=== PATIENT | male | born 1980 | race Hispanic/Latino ===

== ENCOUNTER 2017-06-29 20:40 | Emergency (ER) | payer BC | END 2017-06-29 21:29 | disposition left against medical advice (07) | LOC: ERS 20:40 | DX: Z53.21 Procedure and treatment not carried out due to patient leaving prior to being seen by health care provider (principal) ==

== ENCOUNTER 2018-09-16 00:37 | Emergency (ER) | payer BC, SELFPAY ==
[2018-09-16] MEDS ORDERED: predniSONE 20 MG TAB ONE (01:55)
[2018-09-16] MEDS ORDERED: Naproxen 500 MG TAB ONE (01:55)
== END 2018-09-16 02:08 | disposition home or self-care (01) ==
LOC: ERS 00:37
DX: M54.31 Sciatica, right side (principal)
CPT/HCPCS: 99283; J7512

== ENCOUNTER 2020-03-19 15:10 | Emergency (ER) | payer BC ==
[2020-03-20 06:21] LABS: SARS-CoV-2 MS2 Negative; SARS-CoV-2 N Gene Positive; SARS-CoV-2 by NAA DETECTED (NotDetected); SARS-CoV-2 orf1ab Positive
== END 2020-03-19 20:48 | disposition left against medical advice (07) ==
LOC: ERS 15:10
DX: U07.1 COVID-19 (principal); I10 Essential (primary) hypertension
CPT/HCPCS: 87635; 99283; U0003

== ENCOUNTER 2020-03-20 10:47 | Emergency (ER) | payer BC, SELFPAY ==
--- NOTE | 2020-03-20 11:38 | RAD ---
EXAM: CHEST ONE VIEW HISTORY: Weakness. High blood pressure. COMPARISON: 02/16/2014 FINDINGS: Cardiac silhouette is magnified by projection but stable in size. Pulmonary vasculature is within nor mal limits. The lungs are clear. The osseous structures are intact. IMPRESSION: No acute cardiopulmonary process.
== END 2020-03-20 12:20 | disposition home or self-care (01) ==
LOC: ERS 10:47
DX: U07.1 COVID-19 (principal); I10 Essential (primary) hypertension
CPT/HCPCS: 71045

== ENCOUNTER 2021-01-13 13:44 | Emergency (ER) | payer OTHER ==
[2021-01-13 16:09] LABS: #Basophils 0.1 thou/uL (0.0-0.2); #Eosinphils 0.1 thou/uL (0.0-0.7); #Lymphocytes 1.3 thou/uL (1.20-3.40); #Monocytes 0.6 thou/uL (0.11-0.59); #Neutrophils 5.8 thou/uL (1.40-6.50); %Basophils 0.7 % (0.0-1.0); %Eosinophils 1.3 % (0.0-10.0); %Neutrophils 74.1 % (42.0-75.0); Hemoglobin 16.2 g/dL (14.0-18.0); Mean Corpuscular HGB CONC 33.8 g/dL (32.0-36.0); Mean Corpuscular Hemoglobin 31.9 pg (27.0-31.0); Mean Corpuscular Volume 94.2 fL (78.0-98.0); Mean Platelet Volume 9.1 fL (7.4-10.4); Platelet Count 156 thou/uL (130-400); RBC Distribution Width 12.1 % (11.5-14.5); White Blood Cell (WBC) Count 7.8 thou/uL (4.8-10.8)
[2021-01-13 16:30] LABS: ALT (SGPT) 46 U/L (8-55); AST (SGOT) 32 U/L (5-34); Albumin 4.1 g/dL (3.5-5.0); Alkaline Phosphatase 69 U/L (40-110); Anion Gap 12 mmol/L (10-20); BUN (Urea Nitrogen) 12 mg/dL (8.9-20.6); Bilirubin, Total 1.1 mg/dL (0.2-1.2); Calc. Creatinine Clearance 0 mL/min (70-130); Calcium 9.1 mg/dL (7.8-10.44); Carbon Dioxide 27 mmol/L (22-29); Chloride 103 mmol/L (98-107); Globulin 3.6 g/dL (2.4-3.5); Glucose 93 mg/dL (70-105); Potassium 4.8 mmol/L (3.5-5.1); Protein, Total 7.7 g/dL (6.0-8.3); Sodium 137 mmol/L (136-145)
[2021-01-13] MEDS ORDERED: Ketorolac Tromethamine 30 MG/ML VIAL ONE (16:59)
[2021-01-13] MEDS ORDERED: Lisinopril 10 MG TAB ONE (16:59)
== END 2021-01-13 18:15 | disposition home or self-care (01) ==
LOC: ERS 13:44
DX: R07.89 Other chest pain (principal); T50.B95A Adverse effect of other viral vaccines, initial encounter; Z86.16 Personal history of COVID-19
CPT/HCPCS: 36415; 71045; 80053; 84484; 85025; 85379; 93005; 94760; 96372; J1885